=== PATIENT | male | born 1990 | race Caucasian/White ===

== ENCOUNTER 2022-08-27 07:08 | Emergency (ER) | payer MEDICARE, MEDICAID, SELFPAY ==
[2022-08-27] VITALS (10 sets, daily range): BP systolic 118–151; BP diastolic 69–79; PULSE 53–86; RESP 13–67; TEMP 36.3; O2SAT 98–100; BMI 21.3
--- NOTE | 2022-08-27 07:45 | ED.NAVMDI ---
HPI - Nausea/Vomiting/Diarrhea General Chief complaint: Nausea/Vomiting/Diarrhea Stated complaint: nausea Time Seen by Provider: 08/27/22 07:14 Source: patient Mode of arrival: Ambulatory History of Present Illness HPI Narrative: 32-year-old male with history of type 1 diabetes and gastroparesis as well as methadone treatment presents from the substance abuse clinic for evaluation nausea, dry heaving and an elevated blood sugar. Patient took his insulin prior to arrival. He denies any change in his diabetic regimen or missed doses, he denies any change in his diet. He does state that he has had some constipation lately which is often a trigger of his gastroparesis. He denies any headache or blurred vision. He has no runny nose, sore throat, chest pain or shortness of breath. He denies any fever or chills. He denies diarrhea, dysuria, frequency or urgency Related Data Allergies Allergy/AdvReac Type Severity Reaction Status Date / Time metoclopramide [From Reglan] Allergy Verified 08/27/22 07:21 prochlorperazine Allergy Verified 08/27/22 07:21 [From Compazine] Review of Systems Review of Systems Narrative: GENERAL: Denies chills, fatigue, malaise, fever, sweats. HEENT: Denies sinus pain, ear pain, sore throat, difficulty swallowing, dizziness. RESPIRATORY: Denies dyspnea, cough, wheezing, hemoptysis, sputum. CARDIOVASCULAR: Denies chest pain, palpitations, orthopnea, edema, GASTROINTESTINAL: See HPI : Denies dysuria, frequency, incontinence, hematuria, urinary retention. MUSCULOSKELETAL: denies weakness, joint pain, or bony pain SKIN: Denies rash, skin lesions, or other NEUROLOGIC: Denies weakness, headache, numbness, change in speech, confusion, seizures, incoordination. PSYCHIATRIC: No concerning psychosocial issues. 12 point review of systems is negative except for those stated above Patient History Social History Smoking Status: Never smoker Smoking Status: Never smoker Substance Use Type: former substance user Exam Narrative Exam Narrative: GENERAL: [32] year old patient appears stated age. Well-developed patient, in mild distress. HEAD: Atraumatic. Normocephalic. EYES: Pupils equal round and reactive. Extraocular motions intact. No scleral icterus. No injection or drainage. ENT: Nose without bleeding, purulent drainage. Throat without erythema, tonsillar hypertrophy or exudate. Airway patent. NECK: Trachea midline. Non tender CARDIOVASCULAR: Regular rate and rhythm without murmurs, gallops, or rubs. RESPIRATORY: Clear to auscultation. Breath sounds equal bilaterally. No wheezes, rales, or rhonchi. GASTROINTESTINAL: Abdomen soft, non-tender, nondistended. EXTREMITIES: No edema or joint tenderness. BACK: Nontender without deformity or crepitance. No flank tenderness. NEURO: AOx3. SKIN: No rash or erythema of visible areas Initial Vital Signs Initial Vital Signs: Vital Signs Temperature 97.3 F L 08/27/22 07:21 Pulse Rate 64 08/27/22 07:21 Respiratory Rate 22 08/27/22 07:21 Blood Pressure 151/79 H 08/27/22 07:21 Pulse Oximetry 98 08/27/22 07:21 Oxygen Delivery Method 08/27/22 07:21 Course Orders Ordered: Discontinued Medications Lactated Ringer's (Lactated Ringers) 1,000 mls @ 1,000 mls/hr IV BOLUS ONE Stop: 08/27/22 08:18 Last Infusion: 08/27/22 10:20 Dose: 0 mls/hr Documented By: Admin: 08/27/22 08:15 Dose: 1,000 mls/hr Documented By: BRIE Lactated Ringer's (Lactated Ringers) 1,000 mls @ 1,000 mls/hr IV BOLUS ONE Stop: 08/27/22 10:52 Last Infusion: 08/27/22 11:16 Dose: 0 mls/hr Documented By: Admin: 08/27/22 10:00 Dose: 1,000 mls/hr Documented By: JEANNINE Lorazepam (Lorazepam 2 Mg/Ml Inj) 1 mg IV NOW ONE Stop: 08/27/22 08:31 Last Admin: 08/27/22 08:34 Dose: 1 mg Documented By: BRIE Ondansetron HCl (Ondansetron 4 Mg/2 Ml Inj) 4 mg IV NOW ONE Stop: 08/27/22 07:20 Last Admin: 08/27/22 08:17 Dose: 4 mg Documented By: BRIE Ondansetron HCl (Ondansetron 4 Mg/2 Ml Inj) 4 mg IV NOW ONE Stop: 08/27/22 07:25 Last Admin: 08/27/22 10:20 Dose: Not Given Documented By: JEANNINE Ondansetron HCl (Ondansetron 4 Mg Odt) 4 mg SL NOW ONE Stop: 08/27/22 08:05 Last Admin: 08/27/22 08:07 Dose: 4 mg Documented By: BRIE Pantoprazole Sodium (Pantoprazole 40 Mg Vial) 40 mg IV NOW ONE Stop: 08/27/22 07:25 Last Admin: 08/27/22 08:18 Dose: 40 mg Documented By: MLAntonio Reevaluation(s) Reevaluation #1: Nausea greatly improved, passed oral challenge Time: 09:59 Vital Signs Vital signs: Vital Signs - 8 hr 08/27/22 07:21 Temperature 97.3 F L Pulse Rate 64 Respiratory Rate 22 Blood Pressure 151/79 H Pulse Oximetry 98 Oxygen Delivery Method Room Air MDM - Nausea/Vomiting/Diarrhea Lab Data 08/27/22 08:17 08/27/22 08:17 Labs: Lab Results 08/27/22 08/27/22 08/27/22 Range/Units 08:17 08:17 08:19 WBC 6.3 (4.5-11.0) X10^3/uL RBC 4.72 (4.5-5.9) X10^6/uL Hgb 13.6 (13.5-17.5) g/dL Hct 39.6 L (41-53) % MCV 84.0 (80-100) fL MCH 28.9 (26-34) PG MCHC 34.3 (30-36) % RDW 13.5 (11.6-14.8) % Plt Count 196 (150-400) X10^3/uL Neut % (Auto) 76.9 H (50-75) % Lymph % (Auto) 16.6 L (25-40) % Coles % (Auto) 5.1 (3-14) % Eos % (Auto) 1.1 L (2-4) % Baso % (Auto) 0.3 (0-2) % Neut # (Auto) 4900 (0877-0250) /uL Lymph # (Auto) 1100 (2765-6838) /uL Coles # (Auto) 300 (0-900) /uL Eos # (Auto) 100 (0-450) /uL Baso # (Auto) 0 (0-100) /uL VBG pH 7.43 (7.33-7.43) VBG pCO2 49.6 (45-50) mmHg VBG pO2 23 L (35-45) mmHg VBG HCO3 33 H (24-28) mmol/L VBG Total CO2 35 H (24-29) mmol/L VBG O2 Saturation 41 L (70-75) % VBG Base Excess 9.0 H (0-4) mmol/L FiO2 21 Sodium 138 (137-145) mmol/L Potassium 3.8 (3.4-5.1) mmol/L Chloride 95 L (98-107) mmol/L Carbon Dioxide 31 (22-32) mmol/L BUN 16 (9-20) mg/dL Creatinine 0.66 (0.66-1.25) mg/dL Estimated GFR > 60 (>60) mL/min BUN/Creatinine Ratio 24.2 H (6-22) Glucose 251 H (70-100) mg/dL Calcium 9.7 (8.4-10.2) mg/dL Magnesium 1.5 L (1.6-2.3) mg/dL Total Bilirubin 1.6 H (0.2-1.3) mg/dL AST 42 (17-59) IU/L ALT 44 (<50) IU/L Alkaline Phosphatase 143 H (38-126) U/L Total Protein 8.7 H (6.3-8.2) g/dL Albumin 5.0 (3.5-5.0) g/dL Globulin 3.7 (1.7-4.1) g/dL Albumin/Globulin Ratio 1.4 (1.0-2.8) Lipase 25 (23-300) U/L Point of Care Testing Glucose POC 300 MDM Narrative Medical decision making narrative: CC: 32-year-old male with history of type 1 diabetes and gastroparesis presents with nausea and vomiting Complicating co-morbidities: Substance abuse, type 1 diabetes Data collected from: Patient Medical records reviewed: No prior ED visits noted Differential considered, but not limited to: Gastroparesis, DKA, medication withdrawal versus other Exam documented above, pertinent findings include: No evidence of dehydration, heart rate regular, no respiratory distress, abdomen is soft Lab Test results independently reviewed as above. Pertinent findings: No leukocytosis or significant left shift, electrolytes reassuring, no anion gap. VBG demonstrates no acidosis Imaging studies independently reviewed: Treatments: Fluids, Zofran, Protonix Re-evaluations: Significant improvement in above-stated therapies Discussion: Patient with nausea and vomiting has very reassuring response to therapies, ability to tolerate liquids. No evidence of DKA, suggested by benign VBG and serum lytes. Patient has Zofran at home, does not need another prescription Disposition: see below, along with detailed discharge instructions that have been reviewed with patient as well as indications for ED re-evaluation and additional outpatient follow up Discharge Plan Departure Patient Disposition: Home Clinical Impression: Acute vomiting Instructions: DI for Vomiting -- Adult Activity Restrictions/Additional Instructions: *You have been diagnosed with [nausea and vomiting without evidence DKA * As we discussed your history and physical exam as well as labs and imaging are very reassuring. There is no evidence of any severe diagnoses that would require a specific or immediate intervention. *What to do: *Please continue to take your regular medications as directed. *Please follow up with your primary care provider in 2-3 days, call for an appointment. Let them know you were seen in the Emergency Department and that we ask that you be seen in follow up. We will electronically transmit a record of today's note if your PCP is in our system *Please consider a clear liquid diet for the next 24-48 hours and then slowly advance to regular as tolerated. Also, try to avoid alcohol, nicotine, caffeine, spicy, acidic or fatty foods as this may worsen your symptoms *If you do not have a primary care provider please contact the [facility] Resource line at [phone]. They will ask some questions about your medical history and help get you set up with a doctor in the community. *Return to Emergency Department if you should have any new, worsening or concerning symptoms, such as [fever greater than 101 F, shaking chills, worsening pain, persistent vomiting or other bothersome symptoms] Referrals: Miscellaneous,Doctor, MD [Primary Care Provider] - Stand Alone Forms: Patient Portal/API
[2022-08-27] MEDS: ONDANSETRON 4 MG ODT SL (08:07)
[2022-08-27] MEDS: LACTATED RINGERS 1,000 ML 1000 ML IV ×2 (08:15→10:00)
[2022-08-27] MEDS: ONDANSETRON 4 MG/2 ML INJ IV (08:17)
[2022-08-27] MEDS: PANTOPRAZOLE 40 MG VIAL IV (08:18)
[2022-08-27 08:32] LABS: Fractionated Inspired Oxygen 21; HCO3 VBG 33 mmol/L (24-28); Oxygen Saturation VBG 41 % (70-75); PCO2 VBG 49.6 mmHg (45-50); PO2 VBG 23 mmHg (35-45); Total CO2 VBG 35 mmol/L (24-29); pH VBG 7.43 (7.33-7.43)
[2022-08-27] MEDS: LORazepam 2 MG/ML INJ 1 MG IV (08:34)
[2022-08-27 08:37] LABS: Add Manual Diff / Slide Review NO; Basophils Absolute Auto 0 /uL (0-100); Basophils Percent Auto 0.3 % (0-2); Eosinophils Absolute Auto 100 /uL (0-450); Eosinophils Percent Auto 1.1 % (2-4); Hematocrit 39.6 % (41-53); Hemoglobin 13.6 g/dL (13.5-17.5); Lymphocytes Absolute Auto 1100 /uL (1100-4500); Lymphocytes Percent Auto 16.6 % (25-40); Mean Corpuscular HGB Conc 34.3 % (30-36); Mean Corpuscular Hemoglobin 28.9 PG (26-34); Monocytes Absolute Auto 300 /uL (0-900); Monocytes Percent Auto 5.1 % (3-14); Neutrophils Absolute Auto 4900 /uL (1500-7000); Neutrophils Percent Auto 76.9 % (50-75); Platelet Count 196 X10^3/uL (150-400); Red Blood Cell Count 4.72 X10^6/uL (4.5-5.9); Red Cell Distribution Width 13.5 % (11.6-14.8); White Blood Cell Count 6.3 X10^3/uL (4.5-11.0)
[2022-08-27 08:44] LABS: Alanine Aminotransferase 44 IU/L (<50); Albumin Globulin Ratio 1.4 (1.0-2.8); Alkaline Phosphatase 143 U/L (38-126); Aspartate Aminotransferase 42 IU/L (17-59); BUN Creatinine Ratio 24.2 (6-22); Bilirubin Total 1.6 mg/dL (0.2-1.3); Blood Urea Nitrogen 16 mg/dL (9-20); Calcium 9.7 mg/dL (8.4-10.2); Carbon Dioxide 31 mmol/L (22-32); Chloride 95 mmol/L (98-107); Estimated Glomerular Filt Rate > 60 mL/min (>60); Globulin 3.7 g/dL (1.7-4.1); Glucose 251 mg/dL (70-100); HEMOLYSIS 34 (0-50); Lipase 25 U/L (23-300); Magnesium 1.5 mg/dL (1.6-2.3); Potassium 3.8 mmol/L (3.4-5.1); Sodium 138 mmol/L (137-145); Total Protein 8.7 g/dL (6.3-8.2)
== END 2022-08-27 11:22 | disposition home or self-care (01) ==
PROVIDERS: Emergency Provider Emergency Medicine
DX: R11.2 Nausea with vomiting, unspecified (principal); E10.43 Type 1 diabetes mellitus with diabetic autonomic (poly)neuropathy; K31.84 Gastroparesis
CPT/HCPCS: 36415; 80053; 82805; 83690; 83735; 85025; 96361; 96374; 96375; 99284; C9113; J2060; J2405